=== PATIENT | female | born 1990 | race Caucasian/White ===

== ENCOUNTER 2017-05-01 11:06 | Day surgery (SDC) | payer OTHER ==
[~2017-05-01 11:06] MED LIST: NASONEX0.05 MG/AC; OMEPRAZOLE20 MG PO; SALMETEROL-F28 PUFFS IN; TRI PREVIFEM PO; ZYRTEC 10MG TAB10 MG PO
--- NOTE | 2017-05-01 12:19 | Operative Note ---
Upper GI Endoscopy Procedure date: 05/01/17 Date of : [birth year] Procedure:Upper GI Endoscopy Esophagogastroduodenoscopy with cold biopsies Indications: Ms. Liu is a 26-year-old female who is here for diagnostic panendoscopy. She has had nausea 5 out of 7 days of the week with vomiting twice a month. She has had some lower abdominal cramps and pain. She reports bloating and heartburn and feels like food sits on her chest. She has noted some reflux. She reports globus sensation but does have perennial ALLERGIES. Her gastroesophageal reflux disease symptoms are worsened at nighttime. She reports no dysphagia, early satiety, belching or gassiness. She reports no melena or weight loss. She has had a change in bowel function and does have diarrhea daily. She does have the feeling of incomplete evacuation but notes some bowel urgency. She has noted some fatigue. She had a prior EGD in [address] Adan Baker and had some mild reactive gastritis. The patient has been on omeprazole daily. The patient reports no rectal bleeding or family history of colitis, Crohn's disease or colon cancer. The patient did have blood work showing iron deficiency anemia with hemoglobin 11.3, hematocrit 36.8 and iron saturation of 6 percent. Her celiac serologies were negative. She did have a slightly elevated C-reactive protein of 1.5. Her vitamin D levels were also borderline at 24.2. She had normal TSH/thyroid function, liver and kidney function. Performing Provider: David Prado MD Referring Provider: Pool Bey M.D. Sedation: Fentanyl 150 mg IV/Versed 7 mg IV Procedure: Prior to the procedure, a history and physical exam was performed, and patients medications and allergies were reviewed. The risks and benefits of the procedure and the sedation options and risks were discussed with the patient. All questions were answered and informed consent was obtained. The patient was brought to the procedure room. Patient identification and proposed procedure were verified by the physician and the nurse. The patient was placed in a left lateral decubitus position and the scope was passed under direct vision. Throughout the procedure, the patient's blood pressure, pulse, and oxygen saturations were monitored continuously. The endoscope was introduced through the mouth, and advanced to the second part of duodenum. The upper GI endoscopy was accomplished without difficulty. The patient tolerated the procedure well. Findings: The scope was passed directly into the upper esophagus and advanced to the third portion of the duodenum. The post bulbar duodenum and duodenal bulb were normal with normal mucosa and conniventes. The scope was withdrawn through a normal duodenal bulb and pylorus into the stomach. There was some mild pylorospasm. There was mild linear reactive gastritis of the antrum. There were a couple of fundic gland polyps along the greater curvature of the body of the stomach removed via cold biopsy. The remainder of the antrum, body and fundus of the stomach were grossly normal. Upon retroflexion there was no hiatal hernia. 2 biopsies were taken in the antrum and along the lesser curvature for histology. The scope was then withdrawn into the esophagus. There was no evidence of reflux esophagitis or Kan's. There were tertiary contractions and mild esophageal dysmotility. The remainder of the esophageal mucosa was normal. Immediate complications: None EBL (ml): 0 Impression: 1. Nonerosive gastroesophageal reflux disease with mild esophageal dysmotility 2. Mild linear reactive antritis/gastritis with mild pylorospasm and bile reflux 3. Gastric fundic gland polyps 2 Recommendations: I do feel that the patient has some functional dyspepsia and functional gastroesophageal reflux disease with dysmotility. I would consider adding a fiber bowel regimen and promotility therapy. Some of this may be related to SIBO. We will discuss additional treatment options. Based upon her iron deficiency and elevated CRP, I will proceed with diagnostic colonoscopy. at [id number]
--- NOTE | 2017-05-01 12:35 | Operative Note ---
Colonoscopy ([facility]) Procedure date: 05/01/17 Date of : [birth year] Procedure:Colonoscopy Colonoscopy with cold biopsies Indications: Ms. Liu is a 26-year-old female who is here for diagnostic panendoscopy. She has had nausea 5 out of 7 days of the week with vomiting twice a month. She has had some lower abdominal cramps and pain. She reports bloating and heartburn and feels like food sits on her chest. She has noted some reflux. She reports globus sensation but does have perennial ALLERGIES. Her gastroesophageal reflux disease symptoms are worsened at nighttime. She reports no dysphagia, early satiety, belching or gassiness. She reports no melena or weight loss. She has had a change in bowel function and does have diarrhea daily. She does have the feeling of incomplete evacuation but notes some bowel urgency. She has noted some fatigue. She had a prior EGD in [address] Adan Baker and had some mild reactive gastritis. The patient has been on omeprazole daily. The patient reports no rectal bleeding or family history of colitis, Crohn's disease or colon cancer. The patient did have blood work showing iron deficiency anemia with hemoglobin 11.3, hematocrit 36.8 and iron saturation of 6 percent. Her celiac serologies were negative. She did have a slightly elevated C-reactive protein of 1.5. Her vitamin D levels were also borderline at 24.2. She had normal TSH/thyroid function, liver and kidney function. Performing Provider: David Prado MD Referrring Provider: Pool Bey M.D. Sedation: Fentanyl 200 mg IV/Versed 10 mg IV (combined sedation for both EGD/colonoscopy) Procedure: Prior to the procedure, a history and physical exam was performed, and patient medications and allergies were reviewed. The risks and benefits of the procedure and the sedation options and risks were discussed with the patient. All questions were answered and informed consent was obtained. Patient identification and proposed procedure were verified by the physician and the nurse. The patient was placed in a left lateral decubitus position. Throughout the procedure, the patient's blood pressure, pulse, and oxygen saturations were monitored continuously. Findings: On digital rectal examination there was normal rectal tone. There were no external hemorrhoids. The colonoscope was introduced through the anal canal to the rectum and advanced to the cecum. The ileocecal valve and appendiceal orifice were identified. The scope was advanced a short distance into the ileum which appeared grossly normal. The scope was then withdrawn into the colon. The cecum, ascending, transverse, descending, sigmoid and rectum were grossly normal. There was some very mild white papules in the rectosigmoid suggestive of mild lymphoid hyperplasia of the distal colon and cold biopsies were obtained. There were no other mucosal abnormalities identified. Upon retroflexion within the rectum there were grade 1 internal hemorrhoids. Impressions: 1. Normal colonoscopy with intubation of the terminal ileum 2. Very mild lymphoid hyperplasia of rectosigmoid 3. Grade 1 internal hemorrhoids Recommendations: I do feel that the patient has SIBO with symptoms of nausea and diarrhea. We will discuss additional dietary measures and treatment options. I will follow-up the biopsies. Complications: None EBL (ml): 0 at 8149
[2017-05-01 14:42] VITALS: BP 121/76
== END 2017-05-01 13:40 | disposition home or self-care (01) ==
LOC: SDC 11:06
PROVIDERS: Internal Medicine Gastroenterology
PROC: 0DB68ZX Excision of Stomach, Via Natural or Artificial Opening Endoscopic, Diagnostic (ICD-10-PCS; 2017-05-01)
PROC: 0DBN8ZX Excision of Sigmoid Colon, Via Natural or Artificial Opening Endoscopic, Diagnostic (ICD-10-PCS; principal; 2017-05-01 12:00)
DX: K21.9 Gastro-esophageal reflux disease without esophagitis (principal); R59.9 Enlarged lymph nodes, unspecified; K64.0 First degree hemorrhoids; K22.4 Dyskinesia of esophagus; K29.70 Gastritis, unspecified, without bleeding; K31.7 Polyp of stomach and duodenum